=== PATIENT | female | born 1985 | race Caucasian/White ===

== ENCOUNTER 2017-08-05 22:06 | Emergency (ER) | payer OTHER ==
[~2017-08-05] VITALS: Ht 149.9 cm; Wt 69.8 kg
[2017-08-05] MEDS ORDERED: HYDROCODONE-AP1 EAC6 PO (23:45)
[2017-08-05] MEDS ORDERED: IBUPROFEN 600600 M1 PO (23:45)
[2017-08-06 00:47] VITALS: BP 106/85
== END 2017-08-06 00:47 | disposition home or self-care (01) ==
LOC: M.ERS 22:06
DX: S63.681A Other sprain of right thumb, initial encounter (principal); S00.81XA Abrasion of other part of head, initial encounter; Z23 Encounter for immunization; Z88.1 Allergy status to other antibiotic agents; Y08.89XA Assault by other specified means, initial encounter; Y93.89 Activity, other specified; Y92.89 Other specified places as the place of occurrence of the external cause; Y99.8 Other external cause status